=== PATIENT | male | born 1975 | race Asian ===

== ENCOUNTER 2019-01-25 13:49 | Outpatient (CLI) | payer BC ==
--- NOTE | 2019-01-25 14:19 | ULT ---
Exam: Bilateral renal ultrasound HISTORY: Hematuria. Back pain. Eval for renal calculi. COMPARISON: None FINDINGS: Right kidney: Normal cortical echotexture. No hydronephrosis. Right kidney measurements: 4.8 x 11.1 x 5.0 cm. Left kidney: Normal cortical echotexture. No hydronephrosis Left kidney measurements 5.5 x 12.2 x 6.4 cm. Urinary bladder: There does appear to be some mass effect upon the dome of the bladder. Given history of hematuria, cystoscopy is recommended IMPRESSION: 1. No hydronephrosis 2. Possible mass along the dome of the urinary bladder. Cystoscopy is recommended. CODE T
== END 2019-01-25 13:50 | disposition home or self-care (01) ==
LOC: SCSULT 13:49
PROVIDERS: ATTEND Family Medicine
DX: N20.0 Calculus of kidney (principal)
CPT/HCPCS: 76770

== ENCOUNTER 2021-10-29 13:04 | Outpatient (CLI) | payer BC | END 2021-10-29 13:05 | disposition home or self-care (01) | LOC: BICCT 13:04 | PROVIDERS: ATTEND Urology | DX: N20.0 Calculus of kidney (principal); R31.29 Other microscopic hematuria; N32.89 Other specified disorders of bladder; Z87.448 Personal history of other diseases of urinary system | CPT/HCPCS: 74178 ==